=== PATIENT | female | born 1985 | race Caucasian/White ===

== ENCOUNTER 2016-09-26 11:18 | Day surgery (SDC) | payer BC ==
[~2016-09-26] VITALS: Ht 149.9 cm; Wt 55.8 kg
[~2016-09-26 11:18] MED LIST: FLUC200T36 PO; ONDA4TAB8 PO
[2016-09-26 12:09] VITALS: Ht 149.9 cm; Wt 55.8 kg
[2016-09-26 12:39] VITALS: BP 115/73; PULSE 56; RESP 16
[2016-09-26] MEDS ORDERED: LISINOPRIL (12:50)
[2016-09-26] MEDS ORDERED: INDERAL (12:50)
[2016-09-26] MEDS ORDERED: PROPRANOLOL (12:50)
[2016-09-26] MEDS ORDERED: FENTAnyl 50 MCG/ML VIAL ONE (14:09)
[2016-09-26] MEDS ORDERED: MIDAZOLAM 1 MG/ML 2 ML INJ ONE ×3 (14:09)
[2016-09-26 14:23] VITALS: BP 106/73; PULSE 58; RESP 16
--- NOTE | 2016-09-26 21:19 | CONS ---
DATE OF ADMISSION: 09/26/2016 DATE OF CONSULTATION: 09/14/2016 TYPE OF CONSULTATION: Preoperative gastroenterology consultation. Dear Dr. Alcala: I thank you very much for this kind referral. Ms. lAyse Joyner is a 31-year-old female patient who has been referred to me for further evaluation of abdominal pain and change in the bowel habit. The patient states she has got pain in the left side of the abdomen, both in the upper part as well as the lower part of the abdomen. The patient underwent abdominal CT scan as well as ultrasound and th ey were negative. She also gives history of nausea or vomiting. She is not taking any nonsteroidal anti-inflammatory agents. Her appetite has been good, and there is no history of significant weigh t loss. There is no history of gallstones. She does not have any fever, chills or jaundice. There is no history of liver disease. The patient complains of change in the bowel habit with constipati on and lower abdominal pain. There is no past history of inflammatory bowel disease. She has occas ional rectal bleeding. She is hypertensive. She is not a diabetic. She does not have heart diseas e or lung problem. There is no history of kidney disease. She is status post appendectomy. She iyer s got IUD to prevent . SOCIAL HISTORY: She is a nonsmoker. She occasionally smokes marijuana, does not abuse alcohol. FAMILY HISTORY: Negative for gastrointestinal tract neoplasm. ALLERGIES: SHE STATES SHE IS ALLERGIC TO SULFA. MEDICATIONS: 1. Lisinopril. 2. Inderal. 3. Stool softener. PHYSICAL EXAMINATION: VITAL SIGNS: She is 4 feet 11 inches tall and she weighs 120 pounds. HEART: Examination of the heart reveals normal first and second heart sounds. LUNGS: Clear. ABDOMEN: Soft without any distention. Liver and spleen are not palpable. There are no masses. Th ere is no focal tenderness. Normal bowel sounds are heard. CENTRAL NERVOUS SYSTEM: Does not reveal any focal neurological deficit. IMPRESSION: 1. Upper abdominal pain associated with nausea and vomiting. 2. Rule out peptic ulcer disease. 3. Left-sided lower abdominal pain. 4. Change in the bowel habit with constipation. 5. History of occasional rectal bleeding. 6. Hypertension. 7. The patient has IUD to prevent . 8. Status post appendectomy. 9. The patient occasionally smokes marijuana. 10. HISTORY OF ALLERGY TO SULFA. 11. The patient had abdominal CT scan as well as ultrasound and they were negative. PLAN: Endoscopy and colonoscopy for further evaluation. The procedures and possible complications are well explained to the patient. She understands and co nsents to the procedures. I thank you once again. With warmest personal regards, DALAI YOUNG MD Dictated By: DALIA GOMEZ/MATTHEW Conf#: [id number] DID#: [id number]
--- NOTE | 2016-09-26 23:14 | GILP ---
DATE OF PROCEDURE: NAME OF PROCEDURES: 1. Esophagogastroduodenoscopy and biopsy. 2. Colonoscopy. SURGEON: Duncan Larson MD PREOPERATIVE DIAGNOSES: 1. Abdominal pain. 2. Change in the bowel habit. POSTOPERATIVE DIAGNOSES: 1. Small hiatal hernia. 2. Gastroesophageal reflux disease. 3. Gastritis. 4. Gastric mucosal biopsies were taken for Helicobacter pylori test. 5. Colonoscopy all the way to the cecum. 6. Small internal hemorrhoids. 7. No colitis or neoplasm was identified. INDICATION FOR THE PROCEDURES: Ms. Alyse Joyner is a 31-year-old female patient who had upper abdom inal pain not responding to therapy. She also had change in the bowel habit and lower abdominal maria isabel n. She had abdominal ultrasound and CT scan done, and they were normal, so the patient was schedule d for endoscopy and colonoscopy for further evaluation. The procedures and possible complications were well explained to the patient. She understood and co nsented to the procedures. DESCRIPTION OF PROCEDURE: Under the influence of fentanyl and Versed, the gastroscope was carefully introduced into the esophagus, and under direct vision, it was advanced through stomach and through the pylorus into duodenal bulb and descending duodenum. FINDINGS: ESOPHAGUS: The patient had hiatal hernia and gastroesophageal reflux disease. STOMACH: She had gastritis. Gastric mucosal biopsies were taken for H pylori test. DUODENUM: Normal. The colonoscope was carefully introduced in the rectum, and under direct vision, it was advanced all the way to the cecum. FINDINGS: The patient had small internal hemorrhoids. No colitis or neoplasm was identified. She tolerated the procedures very well. There was no complication from the procedures. At the end of the procedures, she was awake with stable vital signs, and she was discharged home to care of her family. IMPRESSION: Please see postoperative diagnoses. PLAN: 1. Nexium 24HR p.o. q.a.m. 2. Bentyl 10 mg p.o. t.i.d. p.r.n. for pain. 3. Await H pylori test report. Dictated By: DUNCAN GOMEZ/MATTHEW Conf#: [id number] DID#: [id number]
== END 2016-09-26 14:36 | disposition home or self-care (01) ==
LOC: GIL 11:18
PROVIDERS: ATTEND Internal Medicine Gastroenterology
DX: R19.4 Change in bowel habit (principal); K44.9 Diaphragmatic hernia without obstruction or gangrene; K21.9 Gastro-esophageal reflux disease without esophagitis; K29.70 Gastritis, unspecified, without bleeding; K64.8 Other hemorrhoids; I10 Essential (primary) hypertension; Z88.2 Allergy status to sulfonamides
CPT/HCPCS: 43239; 45378; 84703; 87081; J2250; J3010; Z7610

== ENCOUNTER 2018-01-10 06:52 | Emergency (ER) | END 2018-01-10 11:47 | disposition home or self-care (01) ==

== ENCOUNTER 2018-05-30 09:02 | Outpatient (CLI) | END 2018-05-30 12:28 | disposition home or self-care (01) ==

== ENCOUNTER 2018-07-03 14:15 | Inpatient (IN) | END 2018-07-05 21:05 | disposition home or self-care (01) | DRG 832 ==

== ENCOUNTER 2018-08-11 16:21 | Outpatient (CLI) | END 2018-08-11 20:52 | disposition home or self-care (01) ==

== ENCOUNTER 2018-08-19 16:06 | Inpatient (IN) | END 2018-08-22 18:57 | disposition home or self-care (01) | DRG 807 ==